=== PATIENT | male | born 1985 | race Caucasian/White ===

== ENCOUNTER 2016-12-17 20:43 | Emergency (ER) | payer SELFPAY ==
[2016-12-17 20:55] VITALS: BP 141/87; PULSE 64; RESP 16; TEMP 98.1; O2SAT 100
--- NOTE | 2016-12-17 21:45 | ED PDOC ---
HPI: Back Time Seen by Provider: 12/17/16 21:05 Chief Complaint (Nursing): Back Pain Chief Complaint (Provider): Back Pain History Per: Patient History/Exam Limitations: no limitations Current Symptoms Are (Timing): Still Present Additional Complaint(s): 31 y/o male presents to the emergency department with a complaint of intermittent back pain that radiates around to the abdominal region (bilaterally ) described as a burning sensation that only lasts a few seconds. Reports she did not take medications for the relief of pain. Denies pain with urination or presence of blood. Past Medical History Reviewed: Historical Data, Nursing Documentation, Vital Signs Vital Signs: Last Vital Signs Temp 98.1 F 12/17/16 20:54 Pulse 64 12/17/16 20:54 Resp 16 12/17/16 20:54 BP 141/87 12/17/16 20:54 Pulse Ox 100 12/17/16 20:54 - Medical History PMH: No Chronic Diseases - Family History Family History: States: Unknown Family Hx - Home Medications Home Medications: Ambulatory Orders Medication Instructions Recorded Cyclobenzaprine [Cyclobenzaprine 10 mg PO TID #20 tab 12/17/16 HCl] Ibuprofen [Motrin] 600 mg PO Q6 #20 tab 12/17/16 - Allergies Allergies/Adverse Reactions: Allergies Allergy/AdvReac Type Severity Reaction Status Date / Time No Known Allergies Allergy Verified 12/17/16 20:54 Review of Systems ROS Statement: Except As Marked, All Systems Reviewed And Found Negative Gastrointestinal: Positive for: Abdominal Pain Genitourinary Male: Negative for: Dysuria, Hematuria Musculoskeletal: Positive for: Back Pain Physical Exam - Reviewed Nursing Documentation Reviewed: Yes Vital Signs Reviewed: Yes - Physical Exam Appears: Positive for: Non-toxic, No Acute Distress Head Exam: Positive for: ATRAUMATIC, NORMAL INSPECTION, NORMOCEPHALIC Skin: Positive for: Normal Color, Warm, Dry Neck: Positive for: Normal, Supple Back: Positive for: Other (lumbosacral paraspinal tenderness). Negative for: Normal Inspection Neurologic/Psych: Positive for: Alert, Oriented (x3) - ECG O2 Sat by Pulse Oximetry: 100 (RA) Pulse Ox Interpretation: Normal Medical Decision Making Medical Decision Making: Time: 21:18 Initial impression: Back pain and abdominal pain Initial plan: --Urine DIP --Motrin 600 mg PO --Reevaluation Dip: (-) blood, leuks and nites. Pt without complaints of pain on re-eval. Stable for discharge Scribe Attestation: Documented by Eula Escobar, acting as a scribe for Jacki Stafford PA-C Provider Scribe Attestation: All medical record entries made by the Scribe were at my direction and personally dictated by me. I have reviewed the chart and agree that the record accurately reflects my personal performance of the history, physical exam, medical decision making, and the department course for this patient. I have also personally directed, reviewed, and agree with the discharge instructions and disposition. Disposition - Clinical Impression Clinical Impression: Back pain - Patient ED Disposition Is Patient to be Admitted: No - Disposition Disposition: Routine/Home Disposition Time: 22:00 Condition: STABLE Prescriptions: Cyclobenzaprine [Cyclobenzaprine HCl] 10 mg PO TID #20 tab Ibuprofen [Motrin] 600 mg PO Q6 #20 tab Instructions: Acute Low Back Pain (ED) Forms: [employer] (Dutch)
[2016-12-17 22:23] LABS: RBC URINE 3 /hpf (0-3); URINE BILIRUBIN NEGATIVE (NEGATIVE); URINE BLOOD NEGATIVE (NEGATIVE); URINE COLOR YELLOW (YELLOW); URINE GLUCOSE (UA) NEG (Normal); URINE KETONE NEGATIVE (NEGATIVE); URINE LEUKOCYTE ESTERASE NEG Leu/uL (Negative); URINE PROTEIN NEGATIVE (NEGATIVE); URINE UROBILINOGEN 0.2-1.0 mg/dL (0.2-1.0); WBC URINE 4 /hpf (0-5)
== END 2016-12-17 23:51 | disposition home or self-care (01) ==
LOC: H.ER 20:43
DX: M54.9 Dorsalgia, unspecified (principal)